=== PATIENT | female | born 1960 | race African-American/Black ===

== ENCOUNTER 2019-02-27 16:00 | Inpatient (IN) | payer MEDICAID ==
[~2019-02-27] VITALS: Ht 165.1 cm; Wt 100.2 kg
--- NOTE | 2019-02-27 17:17 | NUR ---
RECEIVED REPORT FROM JANETH ROSALES RN @ [facility]
--- NOTE | 2019-02-27 18:41 | NUR ---
MS RN ADMITTING NOTE PATIENT ARRIVED VIA GURNEY FROM [facility]. A/OX4, NO ACUTE DISTRESS OR SOB NOTED. TEMP 98.4, HR 104, RESP 20, BP 162/75, SPO2 98%. AMBULATORY. PATIENT DENIES HEADACHE, NAUSEA OR CHEST PAIN. NO S/S STROKE NOTED. PATIENT ORIENTED TO ROOM, SIDE RAILS UPX2, BED LOCKED, SIDE RAILS UPX2, CALL LIGHT WITHIN REACH, WILL ENDORSE TO NOC RN FOR ALE.
--- NOTE | 2019-02-27 19:30 | NUR ---
RN NOTES, RECEIVED PATIENT IN BED AWAKE, A/O X4 ABLE TO VERBALIZED NEEDS AND CONCERNS, AT ROOM AIR, BREATHING EVEN AND UNLABORED, NO SOB/ACUTE DISTRESS NOTED AT THIS TIME, NO C/O PAIN OR DISCOMFORT, DENIES CHEST PAIN, IV ACCESS IN LEFT AC 20G S/L, PATENT AND INTACT, AMBULATORY, WITH BRP PRIVILEGES, BED LOCKED AND IN LOW POSITION, BILATERAL S/R OF BED IN PLACED FOR REPOSITION, CALL LIGHT W/I REACH, WILL CONTINUE TO MONITOR CLOSELY, AND F/U WITH MD FOR FURTHER ORDERS.
--- NOTE | 2019-02-27 19:55 | NUR ---
RN NOTES, NOTED PATIENT WITH SBP ELEVATED 190S AND HIGH 180S THE LOWEST AT THIS TIME, DENIES ANY DISCOMFORT, PATIENT ASYMPTOMATIC, CALLED EPIC MD MECHANICAL SERVICE SPECIALIST TO REPORT PATIENT'S CONDITION AND FURTHER ORDERS, AWAITING FOR ORDERS AT THIS TIME.
[2019-02-27 20:00] VITALS: BP_SYST 187; BP_SYST 196; BP_DIAS 86; BP_DIAS 94
--- NOTE | 2019-02-27 20:05 | NUR ---
RN NOTES, DEMETRIUS EDGAR CALLED BACK AND INFORMED ABOUT PATIENT HIGH SBP AND THE NEED FOR ORDERS, AND HE REPLIED THAT MELANY BASILIO NP, WORKING ON [employer]IFT STILL WORKING ON THE FLOOR, AWAITING FOR ORDERED, WILL F/U.
--- NOTE | 2019-02-27 21:20 | NUR ---
RN NOTES, SINCE NO ORDERS IN THE SYSTEM AT THIS TIME, CALLED AGAIN [employer] GROUP PRESIDENT, AND DEMETRIUS EDGAR ON THE LINE TO GIVE A NEW ORDER FOR HYDRALAZINE 10 MG IVP FOR SBP>160 Q4HRS PRN, AND CARDIAC DIET, HE STATED THAT HE WILL PUT THE REST OF THE ORDERS, NOTED AND CARRIED OUT, WILL ADMINISTER ORDERED, WILL CONTINUE TO MONITOR PATIENT CLOSELY.
[2019-02-27] MEDS ORDERED: hydrALAZINE HCL IV 20 MG VIAL IV PRN (21:30)
[2019-02-27] MEDS ORDERED: IV NS 0.9% 1,000 ML IV PRN (23:13)
[2019-02-27] MEDS ORDERED: MAG HYDROX/AL HYDROX/SIMETH 30 ML UDC PO PRN (23:30)
[2019-02-27] MEDS ORDERED: ZOLPIDEM TARTRATE 5 MG TABLET PO PRN (23:30)
[2019-02-27] MEDS ORDERED: HYDROCODONE/APAP 5/325MG 1 EACH TABLET PO PRN (23:30)
[2019-02-27] MEDS ORDERED: ONDANSETRON HCL/PF 4 MG/2 ML VIAL IVP PRN (23:30)
[2019-02-27] MEDS ORDERED: MAGNESIUM HYDROXIDE 30 ML UDC PO PRN (23:30)
[2019-02-27] MEDS ORDERED: ACETAMINOPHEN 325 MG TABLET PO PRN (23:30)
[2019-02-27] MEDS ORDERED: Z GUARD REMEDY 2 OZ OINT TP PRN (23:30)
[2019-02-28] VITALS: BP 143/70
[2019-02-28 04:00] VITALS: BP 152/72
--- NOTE | 2019-02-28 06:47 | NUR ---
RN NOTES, PATIENT IN BED AWAKE AT THIS TIME, A/O X4 ABLE TO VERBALIZED NEEDS AND CONCERNS, AT ROOM AIR, BREATHING EVEN AND UNLABORED, NO SOB/ACUTE DISTRESS NOTED AT THIS TIME, DENIES PAIN OR DISCOMFORT OR CHEST PAIN AT THIS TIME, IV ACCESS IN LEFT HAND 22G S/L, PATENT AND INTACT, IV FLUIDS INFUSING WELL AND PATIENT TOLERATED WELL, AMBULATORY WITH BRP PRIVILEGES, BED LOCKED AND IN LOW POSITION, NO SIGNIFICANT CHANGE IN CONDITION DURING NIGHT , AFTER HYDRALAZINE IVP WAS ADMINISTERED, SYSTOLIC BLOOD PRESSURE KEPT IN 140S-150S CALL LIGHT W/I REACH, WILL ENDORSE CONTINUITY OF CARE TO ONCOMING NURSE.
[2019-02-28 07:05] LABS: BASOPHILS % (AUTO) 0.4 % (0.0-2.0); HEMATOCRIT 39 % (33-45); HEMOGLOBIN 13.2 g/dL (11.5-14.8); LYMPHOCYTES # (AUTO) 1.2 /CMM (0.8-4.8); LYMPHOCYTES % (AUTO) 11.5 % (20.0-44.0); MEAN CORPUSCULAR HGB CONC 34 g/dl (31.0-36.0); MEAN CORPUSCULAR VOLUME 90 fL (82-100); MONOCYTES # (AUTO) 0.6 /CMM (0.1-1.30); MONOCYTES % (AUTO) 5.7 % (2.0-12.0); NEUTROPHILS # (AUTO) 8.6 /CMM (1.8-8.9); NEUTROPHILS % (AUTO) 82.4 % (43.0-81.0); PLATELET COUNT (AUTO) 447 /CMM (150-450); WHITE BLOOD COUNT (AUTO) 10.5 K/uL (4.3-11.0)
[2019-02-28 07:16] LABS: ALBUMIN 3.2 g/dL (3.4-5.0); BILIRUBIN,TOTAL 0.8 mg/dL (0.2-1.0); CALCIUM, SERUM 9.2 mg/dL (8.5-10.1); CREATININE 0.9 mg/dL (0.6-1.3); MAGNESIUM 1.7 mg/dL (1.8-2.4); POTASSIUM 4.2 mmol/L (3.5-5.1); TOTAL PROTEIN, SERUM 8.5 g/dL (6.4-8.2)
[2019-02-28 08:00] VITALS: BP 149/79
--- NOTE | 2019-02-28 08:00 | NUR ---
TELE1/RN AM SHIFT INITIAL NOTES RECEIVED PT AWAKE SITTING IN BED, PT A/O X 4, NO ACUTE CHANGE OF CONDITION, DENIES ANY SYMPTOMS INCLUDING HEADACHE. ON ROOM AIR SATURATING @ 97%, RESPIRATIONS EVEN AND UNLABORED, LUNG SOUNDS CLEAR. ON TELE MONITORING WITH SINUS TACHY, HR 110. WITH ON GOING IV INFUSION OF NS @ 75CC/HR, IV SITE PATENT WITH NO S/S OF INFECTION. NO SCHEDULED AM MEDS THIS MORNING. PT IS COMFORTABLE, PLAN OF CARE DISCUSSED WITH PATIENT AND VERBALIZED UNDERSTANDING. CL WITHIN REACHED AND SAFETY MAINTAINED. ON GOING MONITORING.
[2019-02-28] MEDS: Magnesium 1GM/D5W 100ML PREMIX 100 ML IV SCH ×2 (12:39→14:40)
[2019-02-28] MEDS ORDERED: hydrALAZINE HCL 10 MG TABLET PO PRN (14:00)
[2019-02-28] MEDS: predniSONE 20 MG TABLET PO SCH (14:42)
[2019-02-28] MEDS: METOPROLOL TARTRATE 50 MG TABLET PO SCH ×2 (15:00→21:25)
[2019-02-28 16:00] VITALS: BP_SYST 143; BP_SYST 147; BP_DIAS 68; BP_DIAS 73
[2019-02-28] MEDS ORDERED: DEXTROSE 50%-WATER 50 ML DISP.SYRIN IV PRN (18:00)
--- NOTE | 2019-02-28 19:00 | NUR ---
MS1/RN AM SHIFT END NOTES NO ACUTE CHANGE OF CONDITION NOTED DURING THE SHIFT. ALL NEEDS MET. PT ENDORSED TO PM NURSE TO CONTINUE CARE. ALSO ENDORSED TO PLACE PT NPO AFTER MIDNIGHT AND TO COMPLETE PRE-OP CHECK LIST. CL WITHIN REACHED AND SAFETY MAINTAINED.
[2019-02-28 20:00] VITALS: BP 152/77
--- NOTE | 2019-02-28 22:25 | NUR ---
RN NOTES, UPON ACCUCHECK NOTED PATIENT WITH BLOOD SUGAR 464mg/dL REPEATED TEST FOR SECOND TIME AND BLOOD SUGAR 451mg/dL, PER PATIENT AND NOTED FROM KEVIN LACEY, PATIENT NEWLY DX WITH DM TODAY AFTER HA1C 10.5, AND PATIENT REFUSED TO TAKE INSULIN, ACCORDING TO HER SHE REQUESTED PILLS TO CONTROL BLOOD SUGAR TO LACEY INSTEAD OF INSULIN, EVEN THOUGH THE ORDER FOR ACCUCHECK WITH INSULIN COVERAGE IS ACTIVE, EXTENSIVE EDUCATION PROVIDED TO PATIENT ABOUT RISKS AND BENEFITS BLOOD SUGAR CONTROL AND THE NEED FOR INSULIN, SHE STATED SHE'S WILLING TO TAKE INSULIN AT THIS TIME AND ASK DR FOR PILLS FOR TOMORROW, CALLED MD PRINTED CIRCUIT BOARD LAYOUT DESIGNER NING BANG MD, AND REPORT BLOOD SUGAR AND WHATEVER PATIENT WANTS AND MD REPLIED WITH ORDER TO GIVE THE INSULIN, AND FOLLOW UP TOMORROW WITH DEEPTHI IF SHE WANTS PILLS, IMFORMED MD THAT PATIENT WILL BE NPO FOR PROCEDURE IN THE MORNING, AND IF IS OK TO GIVE THE INSULIN AND HE STATED TO GIVE TO INSULIN AT THIS TIME, NOTED AND ZACH OUT, WILL ADMINISTER ORDERED.
[2019-02-28] MEDS: INSULIN REGULAR, HUMAN 100 UNIT/ML 3 ML VIAL SQ PRN (22:26)
[2019-02-28] MEDS: BLOOD SUGAR DIAGNOSTIC 1 EACH STRIP IN SCH (22:33)
[2019-02-28] MEDS ORDERED: IV NS 0.9% 1,000 ML BAG IV PRN (23:00)
[2019-02-28] MEDS ORDERED: IV NS 0.9% 1,000 ML IV PRN (23:30)
[2019-03-01 04:00] VITALS: BP 153/80
--- NOTE | 2019-03-01 06:52 | NUR ---
RN NOTES, PATIENT AWAKE AT THIS TIME, BREATHING EVEN AND UNLABORED NO S/S OF SOB/ACUTE DISTRESS NOTED AT THIS TIME, IV SITE IN RIGHT HAND PATENT AND INTACT, NO SIGNIFICANT CHANGE IN CONDITION DURING THE NIGHT, NPO SINCE MIDNIGHT FOR BILATERAL TEMPORAL ARTERY BIOPSY, BED LOCKED AND IN LOWEST POSITION, CALL LIGHT WITHIN REACH, WILL ENDORSE CONTINUITY OF CARE TO ONCOMING NURSE.
[2019-03-01 07:21] LABS: BASOPHILS % (AUTO) 0.3 % (0.0-2.0); HEMATOCRIT 39 % (33-45); HEMOGLOBIN 12.9 g/dL (11.5-14.8); LYMPHOCYTES # (AUTO) 1.5 /CMM (0.8-4.8); LYMPHOCYTES % (AUTO) 18.2 % (20.0-44.0); MEAN CORPUSCULAR HGB CONC 33 g/dl (31.0-36.0); MEAN CORPUSCULAR VOLUME 90 fL (82-100); MONOCYTES # (AUTO) 0.7 /CMM (0.1-1.30); MONOCYTES % (AUTO) 8.9 % (2.0-12.0); NEUTROPHILS # (AUTO) 6.1 /CMM (1.8-8.9); NEUTROPHILS % (AUTO) 72.6 % (43.0-81.0); PLATELET COUNT (AUTO) 436 /CMM (150-450); RED BLOOD CELL COUNT(AUTO) 4.31 MIL/uL (4.0-5.2); WHITE BLOOD COUNT (AUTO) 8.4 K/uL (4.3-11.0)
[2019-03-01 08:00] VITALS: BP 163/77
[2019-03-01] MEDS: BLOOD SUGAR DIAGNOSTIC 1 EACH STRIP IN SCH ×2 (08:06→16:01)
[2019-03-01 08:51] LABS: CALCIUM, SERUM 9.1 mg/dL (8.5-10.1); CREATININE 0.9 mg/dL (0.6-1.3); POTASSIUM 4.1 mmol/L (3.5-5.1)
[2019-03-01] MEDS ORDERED: VALSARTAN 80 MG TABLET PO SCH (09:00)
[2019-03-01] MEDS: predniSONE 20 MG TABLET PO SCH (10:10)
[2019-03-01 10:15] VITALS: BP 156/72
[2019-03-01] MEDS: METOPROLOL TARTRATE 50 MG TABLET PO SCH (10:15)
[2019-03-01] MEDS ORDERED: CLINDAMYCIN 900 MG/6 ML VIAL ONE (11:52)
[2019-03-01] MEDS ORDERED: FENTANYL PF 100MCG/2ML AMPUL ONE (12:16)
[2019-03-01] MEDS ORDERED: MIDAZOLAM HCL 2 MG/2ML VIAL ONE (12:16)
[2019-03-01] MEDS ORDERED: BUPIVACAINE MPF 0.5% W/EPI INJ 30 ML VIAL ONE (12:37)
[2019-03-01] MEDS ORDERED: ATOR40TA PO (14:44)
[2019-03-01] MEDS ORDERED: METF-440 PO (14:44)
[2019-03-01] MEDS ORDERED: GLYB2.5T4 PO (14:44)
[2019-03-01] MEDS ORDERED: METO25TA6 PO (14:44)
[2019-03-01] MEDS ORDERED: VALS160T2 PO (14:44)
[2019-03-01] MEDS: INSULIN REGULAR, HUMAN 100 UNIT/ML 3 ML VIAL SQ PRN (16:01)
== END 2019-03-01 17:25 | disposition home or self-care (01) | DRG 950 ==
LOC: MEDSG1 18:18 → TELE1 21:20 → MEDSG1 02-28 13:50
PROVIDERS: ADMIT Hospitalist; ATTEND Nurse Practitioner Acute Care
PROC: 03BS0ZX Excision of Right Temporal Artery, Open Approach, Diagnostic (ICD-10-PCS; principal; 2019-03-01)
PROC: 03BT0ZX Excision of Left Temporal Artery, Open Approach, Diagnostic (ICD-10-PCS; principal; 2019-03-01)
DX: M31.6 Other giant cell arteritis (principal); E11.40 Type 2 diabetes mellitus with diabetic neuropathy, unspecified; E11.65 Type 2 diabetes mellitus with hyperglycemia; E66.9 Obesity, unspecified; I16.0 Hypertensive urgency; R51 Headache; I10 Essential (primary) hypertension; Z68.34 Body mass index [BMI] 34.0-34.9, adult; Z88.0 Allergy status to penicillin; R70.0 Elevated erythrocyte sedimentation rate; E87.1 Hypo-osmolality and hyponatremia
CPT/HCPCS: 36415; 80048-TC; 80053-TC; 80061-TC; 82962-TC; 83735-TC; 84100-TC; 85025-TC; 85652-TC; 85730-TC; 86140-TC; 86850-TC; 87081-TC; 88305-TC; 88313-TC; 97116-TC; 97530-TC; G0378; J0360; J1815; J2250; J3010; J3475; J3490; J7030